=== PATIENT | female | born 1980 | race Caucasian/White ===

== ENCOUNTER 2016-07-04 04:04 | Emergency (ER) | payer BC ==
[2016-07-04 04:18] VITALS: BP 128/74; PULSE 106; RESP 18; TEMP 98.7; O2SAT 98
--- NOTE | 2016-07-04 04:54 | PD ---
HPI Chief Complaint: Medical Clearance Time Seen by Provider: 04:49 Travel History International Travel<30 days: No Contact w/Intl Traveler<30days: No Traveled to known affect area: No History of Present Illness HPI Healthy 35-year-old female here with complaint of nausea. Patient was arrested , intoxicated and being brought to [facility]. Patient felt as though she was in the vomit and the back of the police vehicle and therefore was brought here for evaluation of nausea. Patient states that she drink heavily tonight and felt like she was going to.. She denies any abdominal pain. The nausea has since resolved. LMP approximately 3 weeks ago. PFSH Past Medical History Medical History: Denies Significant Hx ?: Not Dilation and Curettage (D&C): Yes Past Surgical History Section: Yes Social History Alcohol Use: Yes Tobacco Use: Yes Substance Use: No Allergies-Medications (Allergen,Severity, Reaction): Coded Allergies: No Known Allergies (Unverified , 07/04/16) Reported Meds & Prescriptions Reported Meds & Active Scripts Active No Active Prescriptions or Reported Medications Review of Systems Except as stated in HPI: all other systems reviewed are Neg Physical Exam Narrative GENERAL: Well-appearing female SKIN: Warm and dry. HEAD: Normocephalic. EYES: No scleral icterus. No injection or drainage. ENT: Mucous membranes pink and moist. NECK: Supple CARDIOVASCULAR: Regular rate and rhythm. RESPIRATORY: No accessory muscle use GASTROINTESTINAL: Abdomen soft, non-tender, nondistended. Hepatic and splenic margins not palpable. MUSCULOSKELETAL: Normal gait NEUROLOGICAL: Awake and alert. Slurred speech and moves all extremities normally PSYCHIATRIC: Appropriate mood and affect; insight and judgment normal. Data Data Last Documented VS Vital Signs Date Time Temp Pulse Resp B/P Pulse Ox O2 Delivery O2 Flow Rate FiO2 07/04/16 04:18 98.7 106 18 128/74 98 MDM Medical Decision Making Medical Screen Exam Complete: Yes Emergency Medical Condition: Yes Medical Record Reviewed: Yes Differential Diagnosis 35-year-old female here with complaint of nausea after she was arrested for disorderly conduct and public intoxication. Nausea has since resolved. My strong suspicion is that this was due to intoxication while moving in the back the motor vehicle. Her abdominal examination is benign and her nausea has since resolved and patient does not warrant further workup. Narrative Course Patient reassured and discharged to custody Diagnosis Primary Impression: Alcohol intoxication Qualified Code: F10.120 - Alcohol intoxication, uncomplicated Additional Impression: Nausea Referrals: Primary Care Physician as needed Med/Other Pt SpecificInfo: No Change to Meds Scripts No Active Prescriptions or Reported Meds Disposition: [address] LAW ENFORCEMNT Condition: Stable Echo Gill MD Jul 04, 2016 04:54
== END 2016-07-04 05:38 ==
LOC: NEPE 04:04
DX: F10.120 Alcohol abuse with intoxication, uncomplicated (principal)
CPT/HCPCS: 99282